=== PATIENT | female | born 1980 | race African-American/Black ===

== ENCOUNTER 2017-02-25 13:55 | Emergency (ER) | payer OTHER ==
[~2017-02-25] VITALS: Ht 160 cm; Wt 73.5 kg
[~2017-02-25 13:55] MED LIST: AMLODIPINE; AMLODIPINE BESY10 MG PO; ATIVAN0.5 MG PO; BACTRIM DS TAB1 EACH PO; CARAFATE 1 GM TA1 GM PO; CARAFATE1 GM/10 ML PO; COLACE 100 MG100 MG PO; COMPAZINE10 MG PO; CRESTOR; IBUPROFEN 600600 M1 PO; LEVAQUIN 500 M500 M1 PO; LEVSIN SL; LISINOPRIL-HCT1 EAC2; MOBIC15 MG PO; MUPIROCIN1 GM TP; NOHOMEMEDICATIONS; NORCO 5-325 TA1 EACH PO; NORCO 7.5-3251 EACH PO; PEPCID40 MG PO; PHENADOZ12.5 MG RC; PHENERGAN 25 MG25 M1 PO; POTASSIUM20 PO; PRILOSEC 20 MG20 MG PO; PRINZIDE 20-121 EACH PO; PROTONIX40 M2 PO; REGLAN 5 MG TAB5 M1 PO; TRAMADOL 50 MG50 MG PO; ZANTAC 150MG T150 M1 PO; ZOFRAN ODT4 MG PO
[2017-02-25 14:23] LABS: URINE BILIRUBIN NEGATIVE (Negative); URINE BLOOD TRACE (Negative); URINE COLOR YELLOW; URINE GLUCOSE-RANDOM* NEGATIVE (Negative); URINE KETONES NEGATIVE (Negative); URINE NITRITE NEGATIVE (Negative); URINE PROTEIN (DIPSTICK) 1+ (Negative); URINE SPECIFIC GRAVITY 1.025 (1.003-1.035); URINE UROBILINOGEN 0.2 E.U./dl (0.2-1.0)
[2017-02-25 14:38] LABS: ABSOLUTE NEUTROPHILS 5.2 thou/uL (1.4-8.2); BASOPHILS 1.2 % (0.0-2.0); EOSINOPHILS 2.6 % (0.0-3.0); HEMATOCRIT 37.1 % (37.0-47.0); HEMOGLOBIN 12.1 gm/dL (12.0-15.0); LYMPHOCYTES 30.1 % (24.0-44.0); MCH 26.3 pg (26.0-34.0); MCHC 32.6 g/dL (28.0-37.0); MCV 80.6 fL (80.0-100.0); MONOCYTES 5.3 % (1.0-8.0); PLATELET COUNT 336 thou/uL (150-400); POLYS 60.8 % (36.0-66.0); WBC 8.5 thou/uL (4.0-11.0)
[2017-02-25 14:39] LABS: MANUAL DIFF NO
[2017-02-25 14:41] LABS: CASTS None Seen /LPF (None Seen); SQUAMOUS 4-10 Moderate /LPF (0-3)
[2017-02-25 14:42] LABS: URINE RBC 0-2 Rare /HPF (0-2); URINE WBC 6-15 Few /HPF (0-5)
[2017-02-25 14:43] LABS: BACTERIA 1-9 Few /HPF (None Seen); CRYSTALS None Seen /LPF (None Seen); WBC CLUMPS Occasional (None Seen)
[2017-02-25 14:48] LABS: ANION GAP 7 mmol/L (7-16); BUN 11 mg/dL (7-18); CALCIUM 9.2 mg/dL (8.5-10.1); CHLORIDE 103 mmol/L (98-107); CO2 28 mmol/L (21-32); CREATININE 0.8 mg/dL (0.6-1.0); GLUCOSE 104 mg/dL (74-106); POTASSIUM 3.4 mmol/L (3.5-5.1); SODIUM 138 mmol/L (136-145)
[2017-02-25 14:54] LABS: ALBUMIN 3.6 g/dL (3.4-5.0); ALKALINE PHOSPHATASE 124 U/L (46-116); DIRECT BILIRUBIN < 0.1 mg/dL (<0.1-0.3); SGOT 26 U/L (15-37); SGPT 35 U/L (30-65); TOTAL BILIRUBIN 0.4 mg/dL (<0.1-1.0); TOTAL PROTEIN 7.8 g/dL (6.4-8.2); TROPONIN-I < 0.04 ng/mL (<0.04-0.07)
[2017-02-25] MEDS ORDERED: CLONIDINE0.1 PO (15:07)
[2017-02-25] MEDS ORDERED: MACROBID 100 M100 M1 PO (15:07)
[2017-02-25] MEDS ORDERED: ZOFRAN ODT4 MG PO (15:08)
== END 2017-02-25 15:46 | disposition home or self-care (01) ==
LOC: ER 13:55
PROVIDERS: Emergency Medicine
DX: N39.0 Urinary tract infection, site not specified (principal); I10 Essential (primary) hypertension; R11.2 Nausea with vomiting, unspecified; F43.9 Reaction to severe stress, unspecified; Z90.49 Acquired absence of other specified parts of digestive tract; Z88.0 Allergy status to penicillin

== ENCOUNTER → 2017-04-10 | Outpatient (CLI) | payer BC ==
[~2017-04-10] MED LIST changes: +CLONIDINE0.1 PO; +MACROBID 100 M100 M1 PO
--- NOTE | ~2017-04-10 | EXE ---
[facility] Rob [employer] [place] [place] [address] STRESS ECHOCARDIOGRAM Name: NELLY CHINCHILLA Doe Room #: REG CL [facility]#: [id number] Admission: 04/10/17 Attend Phys: Physician not on s Discharge: Date of : 76 Date of Service: 04/10/17 1442 Report #: [id number] THIS REPORT FOR: //name// APPROVED REPORT Exam: Stress Echocardiogram Indication: Hypertension, Chest pain Patient Location: Out-Patient Stress Nurse: Katya Ley RN Room #: Echo lab Status: routine Ht: 5 ft 3 in HR: 64 bpm BP: 152/106 mmHg Medical History Medical History: HTN Cardiac Risk Factors: HTN, FHX of CAD Exercise History: Physically active Procedure The patient underwent an Exercise Stress Test using the Memo Protocol. Blood pressure, heart rate, and EKG were monitored. An Echocardiogram was performed by parts technician in four stages in quad fashion. At peak stress, four selected images were obtained and placed side by side with resting images for comparison. Stress Test Details Stress Test: Exercise stress testing was performed using a Memo protocol. HR Resting HR: 64 bpm Max Heart Rate (APMHR): 182 bpm Max HR Achieved: 173 bpm Target HR (85% APMHR): 154 bpm % of APMHR: 95 Recovery HR: 86 bpm HR response to stress: Normal HR response to stress BP Resting BP: 152/106 mmHg Max BP: 208/124 mmHg Recovery BP: 150/102 mmHg ECG Clinical [facility] [address] [place] [address] STRESS ECHOCARDIOGRAM Name: NELLY CHINCHILLA Room #: REG [facility]#: [id number] Admission: 04/10/17 Attend Phys: Physician not on s Discharge: Date of : 76 Date of Service: 04/10/17 1442 Report #: [id number] Reason for Termination: Maximal effort Exercise duration: 9 min 19 sec Highest Stage Achieved: Stage 4: 4.2 mph at 16% grade. Exercise capacity: 11.1 METs Overall Exercise Capacity for Age: Normal Pre-Stress Echo The resting Echocardiogram showed normal left ventricular contractility with an estimated Ejection Fraction of about 55%. Post-Stress Echo The stress Echocardiogram showed normal left ventricular contractility with an estimated Ejection Fraction of about 65%. Clinical Normal augmentation of myocardial wall segments using a 17 segment model. Conclusion Clinical Response: Non-ischemic Exercise Capacity: Average Stress ECG Response: Non-ischemic Stress Echo Images: Non-ischemic No prior study available for comparison. Other Information Study Quality: Good <ELECTRONICALLY SIGNED> By: Jayden Pimentel MD, [facility] 04/10/171441 41 1442 Jayden Pimentel MD, FACC /INF
== END ==
LOC: CV 03-27 08:23
DX: I25.9 Chronic ischemic heart disease, unspecified (principal)

== ENCOUNTER 2017-11-03 14:32 | Inpatient (IN) | payer BC ==
[~2017-11-03] VITALS: Ht 160 cm; Wt 71.6 kg
--- NOTE | ~2017-11-03 | EKG ---
[address] [address] ELECTROCARDIOGRAM REPORT Name: NELLY CHINCHILLA Room #: 427-P [facility]#: [id number] Admission: 11/03/17 Attend Phys: Abram Corcoran MD Discharge: Date of : 76 Report #: [id number] THIS REPORT FOR: //name// [facility] ED Test Date: 2017-11-03 Test Time: 17:16:21 Pat Name: NELLY CHINCHILLA Department: Room: [facility] Gender: F Rug Frame Mounter: MAURISIO : 1980 Requested By: Edi Leon Order Number: [id number] MD: Rudy Cohen Measurements Intervals [place] Rate: 72 P: 64 NE: 178 QRS: 14 QRSD: 101 T: 35 QT: 423 QTc: 463 Interpretive Statements Sinus arrhythmia Abnormal R-wave progression, early transition Compared to ECG 06/14/2011 15:05:24 No significant change was found Electronically Signed On 11-04-2017 8:04:26 CDT by Rudy Cohen [email or web address] <ELECTRONICALLY SIGNED> By: Rudy Cohen MD, [facility] 11/04/17 0804 1716 15 Rudy Cohen MD, [facility] /EPI
[2017-11-03 14:38] VITALS: BP 203/121
[2017-11-03 15:13] LABS: ABSOLUTE NEUTROPHILS 6.5 thou/uL (1.4-8.2); BASOPHILS 1.1 % (0.0-2.0); EOSINOPHILS 2.4 % (0.0-3.0); HEMATOCRIT 38.9 % (37.0-47.0); HEMOGLOBIN 12.6 gm/dL (12.0-15.0); LYMPHOCYTES 23.4 % (24.0-44.0); MCH 26.4 pg (26.0-34.0); MCHC 32.3 g/dL (28.0-37.0); MCV 81.6 fL (80.0-100.0); MONOCYTES 4.1 % (1.0-8.0); PLATELET COUNT 322 thou/uL (150-400); RBC 4.77 mil/uL (4.20-5.00); RDW 16.6 % (10.5-14.5); WBC 9.4 thou/uL (4.0-11.0)
[2017-11-03 15:14] LABS: URINE BILIRUBIN NEGATIVE (Negative); URINE BLOOD 1+ (Negative); URINE CLARITY CLEAR; URINE COLOR YELLOW; URINE GLUCOSE-RANDOM* NEGATIVE (Negative); URINE KETONES NEGATIVE (Negative); URINE LEUKOCYTES NEGATIVE (Negative); URINE NITRITE NEGATIVE (Negative); URINE PROTEIN (DIPSTICK) TRACE (Negative); URINE SPECIFIC GRAVITY 1.015 (1.005-1.035); URINE UROBILINOGEN 0.2 E.U./dl (0.2-1.0)
[2017-11-03 15:21] LABS: ANION GAP 11 mmol/L (7-16); BUN 12 mg/dL (7-18); CALCIUM 9.6 mg/dL (8.5-10.1); CHLORIDE 102 mmol/L (98-107); CO2 28 mmol/L (21-32); CREATININE 0.6 mg/dL (0.6-1.0); GLUCOSE 100 mg/dL (74-106); POTASSIUM 3.4 mmol/L (3.5-5.1); SODIUM 141 mmol/L (136-145)
[2017-11-03 15:26] LABS: AMORPHOUS PHOSPHATES Moderate /LPF (None Seen); BACTERIA 1-9 Few /HPF (None Seen); CASTS None Seen /LPF (None Seen); SQUAMOUS 0-3 Few /LPF (0-3); URINE RBC 0-2 Rare /HPF (0-2); URINE WBC None Seen /HPF (0-5)
[2017-11-03 15:27] LABS: ALBUMIN 4.2 g/dL (3.4-5.0); DIRECT BILIRUBIN < 0.1 mg/dL (<0.1-0.3); LIPASE 158 U/L (73-393); SGOT 20 U/L (15-37); SGPT 28 U/L (30-65); TOTAL BILIRUBIN 0.5 mg/dL (<0.1-1.0); TOTAL PROTEIN 8.3 g/dL (6.4-8.2)
[2017-11-03 17:42] LABS: AMP/METHAMP Negative (Negative); BARBITURATES Negative (Negative); BENZODIAZEPINES Negative (Negative); COCAINE Negative (Negative); METHADONE Negative (Negative); OPIATES Negative (Negative); PCP Negative (Negative)
[2017-11-03 19:41] VITALS: BP 157/97
[2017-11-03 20:49] VITALS: BP 172/92
[2017-11-04 00:21] VITALS: BP 189/98
[2017-11-04 04:00] VITALS: BP 216/129
[2017-11-04 04:15] VITALS: BP 205/121
[2017-11-04 06:37] LABS: CALCIUM 10.5 mg/dL (8.5-10.1); CREATININE 0.7 mg/dL (0.6-1.0)
[2017-11-04 07:25] VITALS: BP 181/111
[2017-11-04 17:30] VITALS: BP 204/118
[2017-11-04 20:00] VITALS: BP 201/107
[2017-11-05 04:00] VITALS: BP 170/21
[2017-11-05 05:37] LABS: ABSOLUTE NEUTROPHILS 10.5 thou/uL (1.4-8.2); BASOPHILS 0.6 % (0.0-2.0); EOSINOPHILS 0.2 % (0.0-3.0); HEMATOCRIT 42.1 % (37.0-47.0); HEMOGLOBIN 13.5 gm/dL (12.0-15.0); LYMPHOCYTES 17.1 % (24.0-44.0); MCH 26.1 pg (26.0-34.0); MCHC 32.2 g/dL (28.0-37.0); MONOCYTES 4.9 % (1.0-8.0); PLATELET COUNT 373 thou/uL (150-400); POLYS 77.2 % (36.0-66.0); RBC 5.19 mil/uL (4.20-5.00); WBC 13.6 thou/uL (4.0-11.0)
[2017-11-05 05:51] LABS: CALCIUM 9.8 mg/dL (8.5-10.1); CREATININE 0.7 mg/dL (0.6-1.0)
[2017-11-05 07:35] VITALS: BP 181/121
[2017-11-05 14:25] VITALS: BP 161/102
[2017-11-05 20:00] VITALS: BP 115/82
[2017-11-06 04:03] VITALS: BP 119/80
[2017-11-06 07:30] VITALS: BP 93/56
[2017-11-06 11:23] LABS: CALCIUM 9.2 mg/dL (8.5-10.1); CREATININE 0.8 mg/dL (0.6-1.0); POTASSIUM 4.4 mmol/L (3.5-5.1)
[2017-11-06 15:23] VITALS: BP 170/100
[2017-11-06 19:15] VITALS: BP 143/103
[2017-11-07 00:01] VITALS: BP 112/73
[2017-11-07 04:38] VITALS: BP 124/88
[2017-11-07 07:48] VITALS: BP 107/70
[2017-11-07 09:35] VITALS: BP 107/70
== END 2017-11-07 11:20 | disposition home or self-care (01) | DRG 305 ==
LOC: ER 14:32 → EROBS 18:35 → 4E 18:40
PROVIDERS: Hospitalist; Nurse Practitioner
DX: I16.0 Hypertensive urgency (principal); E87.6 Hypokalemia; F12.10 Cannabis abuse, uncomplicated; I10 Essential (primary) hypertension; Z98.891 History of uterine scar from previous surgery; Z90.49 Acquired absence of other specified parts of digestive tract; Z71.51 Drug abuse counseling and surveillance of drug abuser; Z79.899 Other long term (current) drug therapy; Z88.0 Allergy status to penicillin; Z91.14 Patient's other noncompliance with medication regimen; Z28.21 Immunization not carried out because of patient refusal
CPT/HCPCS: 10084

== ENCOUNTER 2017-12-03 09:17 | Emergency (ER) | payer BC ==
[~2017-12-03] VITALS: Ht 160 cm; Wt 68.0 kg
[2017-12-03 09:47] LABS: ABSOLUTE NEUTROPHILS 3.5 thou/uL (1.4-8.2); BASOPHILS 1.3 % (0.0-2.0); HEMATOCRIT 40.5 % (37.0-47.0); LYMPHOCYTES 45.7 % (24.0-44.0); MCH 25.8 pg (26.0-34.0); MCV 80.6 fL (80.0-100.0); MONOCYTES 6.5 % (1.0-8.0); PLATELET COUNT 366 thou/uL (150-400); POLYS 43.5 % (36.0-66.0); RBC 5.02 mil/uL (4.20-5.00); RDW 15.8 % (10.5-14.5); WBC 7.9 thou/uL (4.0-11.0)
[2017-12-03] MEDS ORDERED: CHLORTHALIDONE25 MG PO (09:51)
[2017-12-03] MEDS ORDERED: ZANTAC 150MG T150 MG PO (09:51)
[2017-12-03 09:57] LABS: ANION GAP 11 mmol/L (7-16); BUN 14 mg/dL (7-18); CALCIUM 10.4 mg/dL (8.5-10.1); CHLORIDE 98 mmol/L (98-107); CO2 29 mmol/L (21-32); GLUCOSE 118 mg/dL (74-106); POTASSIUM 3.1 mmol/L (3.5-5.1); SODIUM 138 mmol/L (136-145)
[2017-12-03 10:02] LABS: DIRECT BILIRUBIN < 0.1 mg/dL (<0.1-0.3); LIPASE 154 U/L (73-393); SGOT 22 U/L (15-37); SGPT 31 U/L (30-65); TOTAL BILIRUBIN 0.5 mg/dL (<0.1-1.0); TOTAL PROTEIN 8.9 g/dL (6.4-8.2)
[2017-12-03] MEDS ORDERED: CARAFATE 1 GM TA1 G1 PO (12:18)
[2017-12-03] MEDS ORDERED: PHENERGAN 25 MG25 M1 PO (12:18)
[2017-12-03] MEDS ORDERED: POTASSIUM20 PO (12:21)
== END 2017-12-03 14:50 | disposition home or self-care (01) ==
LOC: ER 09:17
PROVIDERS: Nurse Practitioner
DX: R11.2 Nausea with vomiting, unspecified (principal); R50.9 Fever, unspecified; I10 Essential (primary) hypertension; Z90.49 Acquired absence of other specified parts of digestive tract; Z88.0 Allergy status to penicillin

== ENCOUNTER 2017-12-07 10:49 | Inpatient (IN) | payer BC ==
[~2017-12-07] VITALS: Ht 160 cm; Wt 66.2 kg
[~2017-12-07 10:49] MED LIST changes: +CARAFATE 1 GM TA1 G1 PO; +CHLORTHALIDONE25 MG PO; +ZANTAC 150MG T150 MG PO
[2017-12-07 10:54] VITALS: BP 142/104
[2017-12-07 11:27] LABS: ABSOLUTE NEUTROPHILS 7.3 thou/uL (1.4-8.2); BASOPHILS 0.8 % (0.0-2.0); EOSINOPHILS 0.6 % (0.0-3.0); HEMATOCRIT 46.4 % (37.0-47.0); HEMOGLOBIN 15.2 gm/dL (12.0-15.0); LYMPHOCYTES 35.5 % (24.0-44.0); MCH 25.8 pg (26.0-34.0); MCHC 32.7 g/dL (28.0-37.0); MCV 78.9 fL (80.0-100.0); MONOCYTES 6.4 % (1.0-8.0); PLATELET COUNT 377 thou/uL (150-400); POLYS 56.7 % (36.0-66.0); RBC 5.89 mil/uL (4.20-5.00); RDW 15.5 % (10.5-14.5); WBC 12.9 thou/uL (4.0-11.0)
[2017-12-07 11:39] LABS: CALCIUM 9.9 mg/dL (8.5-10.1); CREATININE 1.3 mg/dL (0.6-1.0)
[2017-12-07 11:43] LABS: POTASSIUM 2.7 mmol/L (3.5-5.1)
[2017-12-07 11:46] LABS: TOTAL BILIRUBIN 1.3 mg/dL (<0.1-1.0); TOTAL PROTEIN 8.5 g/dL (6.4-8.2)
[2017-12-07 14:45] LABS: URINE BILIRUBIN NEGATIVE (Negative); URINE BLOOD TRACE (Negative); URINE CLARITY CLEAR; URINE COLOR YELLOW; URINE GLUCOSE-RANDOM* NEGATIVE (Negative); URINE KETONES NEGATIVE (Negative); URINE LEUKOCYTES-REFLEX NEGATIVE (Negative); URINE NITRITE-REFLEX NEGATIVE (Negative); URINE PROTEIN (DIPSTICK) 1+ (Negative); URINE UROBILINOGEN 0.2 E.U./dl (0.2-1.0)
[2017-12-07 14:56] LABS: AMP/METHAMP Negative (Negative); BACTERIA-REFLEX None Seen /HPF (None Seen); BARBITURATES Negative (Negative); BENZODIAZEPINES Negative (Negative); COARSE GRANULAR CASTS 0-3 Few /LPF (None Seen); COCAINE Negative (Negative); CRYSTALS None Seen /LPF (None Seen); HYALINE CASTS 4-10 Moderate /LPF (None Seen); METHADONE Negative (Negative); MUCUS >6 Heavy strn/LPF (None Seen); OPIATES POSITIVE (Negative); PCP Negative (Negative); SQUAMOUS 4-10 Moderate /LPF (0-3); URINE RBC 0-2 Rare /HPF (0-2); URINE WBC-REFLEX 6-15 Few /HPF (0-5)
[2017-12-07] MEDS ORDERED: ONDANSETRON HCL4 M2 PO (14:58)
[2017-12-07 15:09] VITALS: BP 97/65
[2017-12-07 16:00] VITALS: BP 97/65
[2017-12-07 19:27] VITALS: BP 108/74
[2017-12-07 23:39] VITALS: BP 102/54
[2017-12-08 04:22] VITALS: BP 97/63
[2017-12-08 06:18] LABS: HEMATOCRIT 37.1 % (37.0-47.0); HEMOGLOBIN 11.8 gm/dL (12.0-15.0); MCHC 31.8 g/dL (28.0-37.0); MCV 81.7 fL (80.0-100.0); PLATELET COUNT 295 thou/uL (150-400); RBC 4.54 mil/uL (4.20-5.00); WBC 11.6 thou/uL (4.0-11.0)
[2017-12-08 06:44] LABS: CALCIUM 8.7 mg/dL (8.5-10.1); CREATININE 0.9 mg/dL (0.6-1.0); MAGNESIUM 2.2 mg/dL (1.8-2.4); POTASSIUM 3.2 mmol/L (3.5-5.1)
[2017-12-08 07:15] VITALS: BP 113/81
[2017-12-08 08:58] LABS: ABSOLUTE NEUTROPHILS 2.4 thou/uL (1.4-8.2); ATYPICAL LYMPHS 7 %
[2017-12-08 10:12] LABS: PLATELET ESTIMATE NORMAL
[2017-12-08 19:26] VITALS: BP 113/66
[2017-12-09 05:14] VITALS: BP 98/59
[2017-12-09 06:03] LABS: CALCIUM 8.4 mg/dL (8.5-10.1); CREATININE 0.8 mg/dL (0.6-1.0); POTASSIUM 4.1 mmol/L (3.5-5.1)
[2017-12-09 07:51] VITALS: BP 100/74
[2017-12-09] MEDS ORDERED: CIPRO250 M1 PO (10:32)
[2017-12-09] MEDS ORDERED: HYDROCODONE-AP1 EAC6 PO (10:33)
[2017-12-09] MEDS ORDERED: FELODIPINE 5 MG5 M1 PO (10:33)
[2017-12-09 12:08] VITALS: BP 100/74
== END 2017-12-09 12:53 | disposition home or self-care (01) | DRG 694 ==
LOC: ER 10:49 → EROBS 13:19 → 4W 13:19 → ENTRNSPT 12-09 12:21 → EDTRNSPTSTS 12-09 12:23 → 4W 12-09 12:53
PROVIDERS: Hospitalist; Nurse Practitioner; Physician Assistant
DX: N20.0 Calculus of kidney (principal); N17.9 Acute kidney failure, unspecified; K52.9 Noninfective gastroenteritis and colitis, unspecified; E87.6 Hypokalemia; I10 Essential (primary) hypertension; E86.0 Dehydration; F12.10 Cannabis abuse, uncomplicated; Z88.0 Allergy status to penicillin; Z90.49 Acquired absence of other specified parts of digestive tract
CPT/HCPCS: 10045

== ENCOUNTER 2018-04-01 16:29 | Emergency (ER) | payer BC ==
[~2018-04-01] VITALS: Ht 160 cm; Wt 70.3 kg
--- NOTE | ~2018-04-01 | EKG ---
[address] [address] ELECTROCARDIOGRAM REPORT Name: NELLY CHINCHILLA Room #: [facility]#: [id number] Admission: 04/01/18 Attend Phys: Discharge: 04/01/18 Date of : 76 Report #: [id number] THIS REPORT FOR: //name// [facility] ED Test Date: 2018-04-01 Test Time: 18:02:18 Pat Name: NELLY CHINCHILLA Department: Room: Gender: F Rn Integrated: VIANEY : 1980 Requested By: Minnie Barnett Order Number: [id number] MD: Rudy Cohen Measurements Intervals [place] Rate: 59 P: 0 MO: 222 QRS: 7 QRSD: 105 T: 23 QT: 435 QTc: 431 Interpretive Statements Sinus rhythm Prolonged [place] interval Compared to ECG 11/03/2017 17:16:21 First degree AV block now present Electronically Signed On 04-02-2018 8:27:54 CDT by Rudy Cohen [email or web address] <ELECTRONICALLY SIGNED> By: Rudy Cohen MD, [facility] 04/02/18 0827 180 01 Rudy Cohen MD, FACC /EPI
[~2018-04-01 16:29] MED LIST changes: +CIPRO250 M1 PO; +FELODIPINE 5 MG5 M1 PO; +HYDROCODONE-AP1 EAC6 PO; +ONDANSETRON HCL4 M2 PO
[2018-04-01 17:33] LABS: URINE BILIRUBIN NEGATIVE (Negative); URINE BLOOD NEGATIVE (Negative); URINE CLARITY CLEAR; URINE COLOR YELLOW; URINE GLUCOSE-RANDOM* NEGATIVE (Negative); URINE KETONES TRACE (Negative); URINE LEUKOCYTES-REFLEX NEGATIVE (Negative); URINE NITRITE-REFLEX NEGATIVE (Negative); URINE PROTEIN (DIPSTICK) 1+ (Negative); URINE SPECIFIC GRAVITY >= 1.030 (1.005-1.035); URINE UROBILINOGEN 0.2 E.U./dl (0.2-1.0)
[2018-04-01 17:48] LABS: BACTERIA-REFLEX None Seen /HPF (None Seen); CASTS None Seen /LPF (None Seen); CRYSTALS None Seen /LPF (None Seen); MUCUS >6 Heavy strn/LPF (None Seen); SQUAMOUS 4-10 Moderate /LPF (0-3); URINE RBC 0-2 Rare /HPF (0-2); URINE WBC-REFLEX 0-5 Rare /HPF (0-5)
[2018-04-01 18:01] LABS: ABSOLUTE NEUTROPHILS 3.7 thou/uL (1.4-8.2); BASOPHILS 1.2 % (0.0-2.0); EOSINOPHILS 2.7 % (0.0-3.0); HEMATOCRIT 35.9 % (37.0-47.0); HEMOGLOBIN 11.8 gm/dL (12.0-15.0); LYMPHOCYTES 40.2 % (24.0-44.0); MCH 26.8 pg (26.0-34.0); MCHC 32.9 g/dL (28.0-37.0); MCV 81.4 fL (80.0-100.0); MONOCYTES 4.9 % (1.0-8.0); PLATELET COUNT 301 thou/uL (150-400); RBC 4.41 mil/uL (4.20-5.00); WBC 7.3 thou/uL (4.0-11.0)
[2018-04-01 18:08] LABS: ANION GAP 9 mmol/L (7-16); BUN 12 mg/dL (7-18); CHLORIDE 102 mmol/L (98-107); CO2 27 mmol/L (21-32); CREATININE 0.7 mg/dL (0.6-1.0); GLUCOSE 83 mg/dL (74-106); POTASSIUM 3.2 mmol/L (3.5-5.1); SODIUM 138 mmol/L (136-145)
[2018-04-01 18:17] LABS: ALBUMIN 3.8 g/dL (3.4-5.0); LIPASE 88 U/L (73-393); SGOT 19 U/L (15-37); SGPT 27 U/L (30-65); TOTAL BILIRUBIN 0.6 mg/dL (<0.1-1.0); TOTAL PROTEIN 7.5 g/dL (6.4-8.2); TROPONIN-I <0.06 ng/mL (<0.06)
[2018-04-01 18:36] LABS: AMP/METHAMP Negative (Negative); BARBITURATES Negative (Negative); BENZODIAZEPINES Negative (Negative); COCAINE Negative (Negative); METHADONE Negative (Negative); OPIATES Negative (Negative); PCP Negative (Negative)
[2018-04-01] MEDS ORDERED: CARAFATE 1 GM TA1 G1 PO (19:28)
[2018-04-01] MEDS ORDERED: LISINOPRIL5 MG PO (19:28)
[2018-04-01] MEDS ORDERED: ONDANSETRON HCL4 M2 PO (19:29)
[2018-04-01] MEDS ORDERED: PHENERGAN 25 MG25 M1 PO (19:53)
== END 2018-04-01 20:26 | disposition home or self-care (01) ==
LOC: ER 16:29
PROVIDERS: Nurse Practitioner Family
DX: E87.6 Hypokalemia (principal); F12.99 Cannabis use, unspecified with unspecified cannabis-induced disorder; R11.2 Nausea with vomiting, unspecified; R10.32 Left lower quadrant pain; R10.13 Epigastric pain; I10 Essential (primary) hypertension; Z88.0 Allergy status to penicillin; Z98.890 Other specified postprocedural states; Z90.49 Acquired absence of other specified parts of digestive tract

== ENCOUNTER 2018-05-15 12:55 | Emergency (ER) | payer BC ==
[~2018-05-15] VITALS: Ht 160 cm; Wt 67.6 kg
[~2018-05-15 12:55] MED LIST changes: +LISINOPRIL5 MG PO
[2018-05-15 13:38] LABS: BASOPHILS 0.5 % (0.0-2.0); EOSINOPHILS 0.5 % (0.0-3.0); HEMATOCRIT 44.9 % (37.0-47.0); LYMPHOCYTES 15.7 % (24.0-44.0); MCH 26.5 pg (26.0-34.0); MCHC 33.5 g/dL (28.0-37.0); MCV 79.2 fL (80.0-100.0); PLATELET COUNT 399 thou/uL (150-400); POLYS 77.3 % (36.0-66.0); RBC 5.67 mil/uL (4.20-5.00); WBC 16.9 thou/uL (4.0-11.0)
[2018-05-15 13:41] LABS: URINE BLOOD 3+ (Negative); URINE GLUCOSE-RANDOM* NEGATIVE (Negative); URINE KETONES 1+ (Negative); URINE LEUKOCYTES-REFLEX NEGATIVE (Negative); URINE PROTEIN (DIPSTICK) 3+ (Negative); URINE SPECIFIC GRAVITY 1.025 (1.005-1.035); URINE UROBILINOGEN 0.2 E.U./dl (0.2-1.0)
[2018-05-15 13:44] LABS: CALCIUM 10.9 mg/dL (8.5-10.1); POTASSIUM 3.2 mmol/L (3.5-5.1)
[2018-05-15 13:45] LABS: URINE NITRITE-REFLEX POSITIVE (Negative)
[2018-05-15] MEDS ORDERED: HYDROCHLOROTHIA25 M2 PO (13:45)
[2018-05-15 13:46] LABS: ICTOTEST (BILI CONFIRMATORY) Negative (Negative); URINE BILIRUBIN NEGATIVE (Negative); URINE CLARITY CLOUDY; URINE COLOR REDDISH
[2018-05-15 13:49] LABS: BACTERIA-REFLEX 1-9 Few /HPF (None Seen); SQUAMOUS 4-10 Moderate /LPF (0-3); URINE RBC >20 Many /HPF (0-2); URINE WBC-REFLEX 0-5 Rare /HPF (0-5)
[2018-05-15 13:51] LABS: CASTS None Seen /LPF (None Seen); CRYSTALS None Seen /LPF (None Seen)
[2018-05-15 13:51] LABS: ALBUMIN 4.3 g/dL (3.4-5.0); TOTAL BILIRUBIN 1.2 mg/dL (<0.1-1.0); TOTAL PROTEIN 9.4 g/dL (6.4-8.2)
[2018-05-15] MEDS ORDERED: NORCO 5-325 TA1 EACH PO (15:48)
[2018-05-15] MEDS ORDERED: REGLAN 10 MG TA10 MG PO (15:48)
== END 2018-05-15 16:27 | disposition home or self-care (01) ==
LOC: ER 12:55
PROVIDERS: Physician Assistant
DX: N83.202 Unspecified ovarian cyst, left side (principal); I10 Essential (primary) hypertension; E87.6 Hypokalemia; D21.9 Benign neoplasm of connective and other soft tissue, unspecified; Z90.49 Acquired absence of other specified parts of digestive tract; Z98.890 Other specified postprocedural states; Z88.0 Allergy status to penicillin

== ENCOUNTER 2018-05-18 14:05 | Emergency (ER) | payer BC ==
[~2018-05-18] VITALS: Ht 160 cm; Wt 63.5 kg
--- NOTE | ~2018-05-18 | EKG ---
[place] [address] [address] [facility] [place] [address] ELECTROCARDIOGRAM REPORT Name: AMORNELLY Room #: [facility]#: [id number] Admission: 05/18/18 Attend Phys: Discharge: Date of : 76 Report #: [id number] THIS REPORT FOR: //name// [facility] ED Test Date: 2018-05-18 Test Time: 14:56:20 Pat Name: NELLY CHINCHILLA Department: Room: Gender: F Material Reprocessing Associate: rakesh : 1980 Requested By: Shawnee Barber Order Number: [id number] MD: Measurements Intervals [place] Rate: 81 P: 39 VT: 181 QRS: 5 QRSD: 106 T: 33 QT: 432 QTc: 502 Interpretive Statements Sinus rhythm Probable left ventricular hypertrophy Borderline prolonged QT interval Compared to ECG 04/01/2018 18:02:18 First degree AV block no longer present [email or web address] By: 1456 1456 Epiphany EpiphMD dhara /RED
[~2018-05-18 14:05] MED LIST changes: +HYDROCHLOROTHIA25 M2 PO; +REGLAN 10 MG TA10 MG PO
[2018-05-18 15:22] LABS: ABSOLUTE NEUTROPHILS 6.6 thou/uL (1.4-8.2); EOSINOPHILS 1.4 % (0.0-3.0); HEMOGLOBIN 13.1 gm/dL (12.0-15.0); LYMPHOCYTES 31.6 % (24.0-44.0); MCH 26.8 pg (26.0-34.0); MCHC 33.5 g/dL (28.0-37.0); MCV 80.1 fL (80.0-100.0); MONOCYTES 4.5 % (1.0-8.0); PLATELET COUNT 325 thou/uL (150-400); POLYS 61.5 % (36.0-66.0); RBC 4.87 mil/uL (4.20-5.00); WBC 10.7 thou/uL (4.0-11.0)
[2018-05-18 15:27] LABS: CALCIUM 9.5 mg/dL (8.5-10.1); CREATININE 0.9 mg/dL (0.6-1.0)
[2018-05-18 15:30] LABS: POTASSIUM 2.4 mmol/L (3.5-5.1)
[2018-05-18 15:33] LABS: ALBUMIN 3.7 g/dL (3.4-5.0); TOTAL BILIRUBIN 0.9 mg/dL (<0.1-1.0); TOTAL PROTEIN 7.6 g/dL (6.4-8.2)
[2018-05-18 16:19] LABS: URINE BILIRUBIN NEGATIVE (Negative); URINE BLOOD 2+ (Negative); URINE CLARITY CLEAR; URINE COLOR YELLOW; URINE GLUCOSE-RANDOM* NEGATIVE (Negative); URINE KETONES NEGATIVE (Negative); URINE LEUKOCYTES-REFLEX NEGATIVE (Negative); URINE NITRITE-REFLEX NEGATIVE (Negative); URINE PROTEIN (DIPSTICK) NEGATIVE (Negative); URINE SPECIFIC GRAVITY 1.015 (1.005-1.035); URINE UROBILINOGEN 0.2 E.U./dl (0.2-1.0)
[2018-05-18 16:47] LABS: CASTS None Seen /LPF (None Seen); SQUAMOUS >10 Many /LPF (0-3); URINE WBC-REFLEX 0-5 Rare /HPF (0-5)
[2018-05-18 16:48] LABS: BACTERIA-REFLEX 1-9 Few /HPF (None Seen); CRYSTALS None Seen /LPF (None Seen); URINE RBC 3-10 Few /HPF (0-2)
[2018-05-18] MEDS ORDERED: REGLAN 10 MG TA10 MG PO (17:30)
[2018-05-18] MEDS ORDERED: NORCO 5-325 TA1 EACH PO (17:30)
[2018-05-18] MEDS ORDERED: POTASSIUM20 PO (17:30)
== END 2018-05-18 18:05 | disposition home or self-care (01) ==
LOC: ER 14:05
PROVIDERS: Physician Assistant
DX: E87.6 Hypokalemia (principal); R11.2 Nausea with vomiting, unspecified; R10.13 Epigastric pain; I10 Essential (primary) hypertension; Z88.0 Allergy status to penicillin; Z90.49 Acquired absence of other specified parts of digestive tract; Z98.890 Other specified postprocedural states

== ENCOUNTER 2018-07-15 17:29 | Emergency (ER) | payer BC ==
[~2018-07-15] VITALS: Ht 172.7 cm; Wt 74.8 kg
--- NOTE | ~2018-07-15 | EKG ---
[address] [address] ELECTROCARDIOGRAM REPORT Name: NELLY CHINCHILLA Room #: [facility]#: [id number] Admission: 07/15/18 Attend Phys: Discharge: 07/15/18 Date of : 76 Report #: [id number] THIS REPORT FOR: //name// [facility] ED Test Date: 2018-07-15 Test Time: 19:07:21 Pat Name: NELLY CHINCHILLA Department: Room: Gender: F Insurance Representative: as : 1980 Requested By: Minnie Barnett Order Number: [id number] MD: Rudy Cohen Measurements Intervals [place] Rate: 92 P: 62 WA: 166 QRS: 4 QRSD: 96 T: 53 QT: 376 QTc: 466 Interpretive Statements Sinus rhythm Nonspecific ST segment abnormality Compared to ECG 05/18/2018 14:56:20 No significant changes Electronically Signed On 07-16-2018 9:47:57 SPOUTER by Rudy Cohen [email or web address] <ELECTRONICALLY SIGNED> By: Rudy Cohen MD, [facility] 07/16/18 0947 1907 06 Rudy Cohen MD, FACC /EPI
[2018-07-15 17:46] LABS: URINE BILIRUBIN 1+ (Negative); URINE BLOOD 2+ (Negative); URINE CLARITY CLEAR; URINE COLOR YELLOW; URINE GLUCOSE-RANDOM* NEGATIVE (Negative); URINE KETONES NEGATIVE (Negative); URINE LEUKOCYTES-REFLEX NEGATIVE (Negative); URINE NITRITE-REFLEX NEGATIVE (Negative); URINE PROTEIN (DIPSTICK) 3+ (Negative); URINE SPECIFIC GRAVITY >= 1.030 (1.005-1.035); URINE UROBILINOGEN 0.2 E.U./dl (0.2-1.0)
[2018-07-15 18:01] LABS: COARSE GRANULAR CASTS 4-10 Moderate /LPF (None Seen); HYALINE CASTS 0-3 Few /LPF (None Seen); SQUAMOUS None Seen /LPF (0-3)
[2018-07-15 18:02] LABS: CRYSTALS None Seen /LPF (None Seen); MUCUS 0-3 Light strn/LPF (None Seen); URINE RBC None Seen /HPF (0-2); URINE WBC-REFLEX >25 Many /HPF (0-5)
[2018-07-15 18:09] LABS: ABSOLUTE NEUTROPHILS 6.9 thou/uL (1.4-8.2); BASOPHILS 0.5 % (0.0-2.0); HEMATOCRIT 48.3 % (37.0-47.0); HEMOGLOBIN 15.9 gm/dL (12.0-15.0); LYMPHOCYTES 13.8 % (24.0-44.0); MCH 26.9 pg (26.0-34.0); MCV 81.6 fL (80.0-100.0); MONOCYTES 3.1 % (1.0-8.0); PLATELET COUNT 382 thou/uL (150-400); POLYS 82.6 % (36.0-66.0); RBC 5.93 mil/uL (4.20-5.00); WBC 8.4 thou/uL (4.0-11.0)
[2018-07-15 18:17] LABS: CALCIUM 11.1 mg/dL (8.5-10.1); CREATININE 1.1 mg/dL (0.6-1.0); POTASSIUM 3.2 mmol/L (3.5-5.1)
[2018-07-15 18:23] LABS: ALBUMIN 4.9 g/dL (3.4-5.0); TOTAL BILIRUBIN 0.7 mg/dL (<0.1-1.0); TOTAL PROTEIN 10.1 g/dL (6.4-8.2)
[2018-07-15 19:00] LABS: AMP/METHAMP Negative (Negative); BARBITURATES Negative (Negative); BENZODIAZEPINES Negative (Negative); COCAINE Negative (Negative); METHADONE Negative (Negative); OPIATES Negative (Negative); PCP Negative (Negative)
[2018-07-15] MEDS ORDERED: PHENERGAN 25 MG25 M1 PO (20:46)
[2018-07-15] MEDS ORDERED: ONDANSETRON HCL4 M2 PO (20:46)
[2018-07-15] MEDS ORDERED: MACROBID 100 M100 M1 PO (21:04)
[2018-07-15 22:09] VITALS: BP 177/116
== END 2018-07-15 22:09 | disposition home or self-care (01) ==
LOC: ER 17:29
PROVIDERS: Nurse Practitioner Family
DX: N39.0 Urinary tract infection, site not specified (principal); E86.0 Dehydration; I16.0 Hypertensive urgency; I10 Essential (primary) hypertension; Z90.49 Acquired absence of other specified parts of digestive tract; Z98.890 Other specified postprocedural states; Z88.0 Allergy status to penicillin

== ENCOUNTER 2018-07-20 10:39 | Inpatient (IN) | payer BC ==
[~2018-07-20] VITALS: Ht 160 cm; Wt 69.4 kg
--- NOTE | ~2018-07-20 | PATH ---
[facility] [address] [place] [address] PATHOLOGY RPT PROCEDURE Name: NELLY CHINCHILLA Room #: 463-P DIS IN .R.#: [id number] Admission: 07/20/18 Date of : 76 Discharge: 07/22/18 Report #: [id number] Path Case #: [id number] Note [facility] Accession Number: [id number] TESTS RESULT FLAG UNITS REF RANGE LAB Clinician Provided Cytology Information No. of containers..01 Other (Miscellaneous) Source: 01 L PARATUBULAR CYST DIAGNOSIS: 02 LEFT PARATUBULAR CYST NEGATIVE FOR MALIGNANT CELLS. CELLULAR DEGENERATION IS PRESENT. REACTIVE CELLULAR CHANGES NOTED. CLUSTERS OF EPITHELIAL CELLS, SIMILAR TO THE CELLS NOTED IN THE SEROUS CYSTADENOMA NOTED IN [id number], PLEASE REFER TO A SEPARATE REPORT. Signed out by: 02 Kyung Jeffery MD, Pathologist NPI- [id number] Performed by: Meghan Rider, Decating Machine Operator ([facility]) Gross description: 01 35ML, YELLOW, CLEAR /LCS FLAG LEGEND: L-Low Normal,H-High Normal,LL-Alert Low,HH-Alert High <-Panic Low,>-Panic High,A-Abnormal,AA-Critical Abnormal Performed at: [address] [place] [address] Gerson Kilpatrick MD, [address] [address] Kyung Jeffery MD, Specimen Comment: A courtesy copy of this report has been sent to Specimen Comment: [phone], . Specimen Comment: Report sent to Performed at: [address], [place], [place] [id number] MD Gerson Kilpatrick MD Phone: [phone]
--- NOTE | ~2018-07-20 | O ---
[facility] [place] [address] OPERATIVE REPORT Name: NELLY CHINCHILLA Room #: 463-P ADM IN M.R.#: [id number] Admission: 07/20/18 Attend Phys: Asad Neely MD Discharge: Date of : 76 Report #: [id number] THIS REPORT FOR: //name// CC: LANG Lewis DATE OF SERVICE: 07/20/2018 PREOPERATIVE DIAGNOSES: Acute abdominal pain, persistent left ovarian cyst, acute nausea and vomiting, family history of ovarian cancer. POSTOPERATIVE DIAGNOSES: Acute abdominal pain, left adnexal paratubal cyst, pelvic adhesions from the omentum to the broad ligament and round ligament on the left side, nausea and vomiting. FAMILY HISTORY: Ovarian cancer. SURGEON: Tank Lewis M.D. ASSISTED BY: Jimbo Velásquez M.D. PROCEDURE: Laparoscopic bilateral salpingectomy and removal of left paratubal cyst, lysis of pelvic adhesions. ANESTHESIA: General. ESTIMATED BLOOD LOSS: 5 mL. DRAINS: Grant. SPECIMEN: 1. Peritoneal washings. 2. Left fallopian tube with left paratubal cyst. 3. Right fallopian tube. COMPLICATIONS: None. FINDINGS: 1. Benign appearing left paratubal cyst 6 cm in diameter pulling on the left ovary. There was no evidence of torsion. The cyst appeared simple with clear fluid. 2. Both ovaries and the right tube had inflammatory cysts on their surfaces. 3. No evidence of endometriosis nor tumor nodules in the pelvis, bowel or diaphragm. 4. Wide portion of omentum densely adherent to the left round ligament and [facility] [address] [place] [address] OPERATIVE REPORT Name: NELLY CHINCHILLA Room #: 463-P ADM IN M.R.#: [id number] Admission: 07/20/18 Attend Phys: Asad Neely MD Discharge: Date of : 76 Report #: [id number] nearby broad ligament. 5. 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 DESCRIPTION OF PROCEDURE: The patient was seen in the preoperative holding area where consent was obtained for surgery. She was then taken to the operating room and administered general anesthesia, prepped and draped in a sterile fashion in the dorsal lithotomy position. Pelvic exam under anesthesia revealed a nonpalpable uterus and nonpalpable adnexa. Speculum was placed in the vagina. The cervix was grasped using a single tooth tenaculum. Uterus sounded to a depth of 8 cm. A Hulka sound tenaculum was then placed inside the uterus and the single tooth tenaculum removed. Speculum was removed. Grant catheter was inserted. Attention was then turned to the abdomen. 0.5% Marcaine was used to infiltrate the incision sites prior to incising them on the abdominal wall. An infraumbilical skin incision was made using a second scalpel overlying the previous transverse infraumbilical surgical scar. Adhesions were encountered when dissecting down to the level of the fascia, which was then grasped in the midline using 2 Mimi clamps, 1 on each side of the midline. The fascia was then incised vertically using a scalpel cutting through old scar tissue until the peritoneum was reached. Stay sutures were placed using 0 Vicryl in the midportion of the incision, 1 on the right side, 1 on the left. The Candelario cannula was then inserted into the peritoneal cavity and ligated to the stay sutures. CO2 gas was insufflated into the peritoneal cavity. Laparoscope was inserted and a panoramic view of the pelvic organs was obtained. A 5-mm laparoscopic port was then placed under direct laparoscopic vision in the right lower quadrant staying 2 fingerbreadths above and medial to the anterior iliac spine. The inferior epigastric blood vessels were identified and the port was placed lateral to them. A second 5-mm port was placed midway between the pubic bone and the umbilicus in the midline under direct laparoscopic vision. The pelvic abdominal cavity was explored. Pelvic washings were taken using normal saline. Findings were as dictated as above. The left paratubal cyst was lifted up from the posterior cul-de-sac where it was sitting as it did appear to be pulling on the ovary. The left paratubal cyst was then aspirated using a needle and deflated with clear straw-colored fluid obtained and sent for pathology. A 5-mm LigaSure unit was then used to excise the left fallopian tube with his paratubal cyst intact down to the level where the Falope ring had tubes and tubal segments. Hemostasis was observed. The right fallopian tube was then removed using the LigaSure unit again down to and including the Falope ring. Again, findings were in the introduction. Both ovaries were found to be normal with a corpus luteal cyst on the right ovary and some tiny inflammatory cyst on the surface of both ovarian capsules and the fallopian tubes. There was no evidence of endometriosis. There was approximately 2.5-cm subserosal fibroid located on the right uterine fundus. No other subserosal fibroids were noted. The 5-mm port was then removed from the right lower quadrant and hemostasis observed. The supraumbilical port was then removed and found to be hemostatic. The CO2 gas was then expressed through the umbilical port opening by removing the Lei cannula. The fascia at the [address] [address] OPERATIVE REPORT Name: NELLY CHINCHILLA Room #: 463-P [facility].#: [id number] Admission: 07/20/18 Attend Phys: Asda Neely MD Discharge: Date of : 76 Report #: [id number] umbilicus was closed using 3 interrupted simple sutures of 0 Vicryl. The skin incisions were then closed using interrupted simple sutures of 3-0 Vicryl. The Grant catheter was removed as well as a single tooth tenaculum. Hemostasis was observed. The patient was then brought out of general anesthesia and taken to recovery room with IV infusing well. By: 1500 1534 Tank Lewis MD /nt
--- NOTE | ~2018-07-20 | PATH ---
[facility] [place] [address] PATHOLOGY RPT PROCEDURE Name: NELLY CHINCHILLA Doe Room #: 463-P DIS IN M.R.#: [id number] Admission: 07/20/18 Date of : 76 Discharge: 07/22/18 Report #: [id number] Path Case #: [id number] [facility] Accession Number: [id number] . 01 Material submitted: . PART A: LEFT FALLOPIAN TUBE AND PARATUBAL CYST PART B: RIGHT FALLOPIAN TUBE . 01 Clinical history: . Endometriosis; dysmenorrhea, progressive; ovarian cyst . 02 Diagnosis: A. Tissue designated as, "left fallopian tube and paratubal cyst", ovarian cystectomy: - Benign serous cystadenoma measuring 3.6 cm in greatest dimension (please see comment). - Negative for borderline proliferation or malignancy. - Adjacent compressed and flattened ovarian parenchyma identified. - Portion of fallopian tube showing congestion as well as reactive changes. . B. Right fallopian tube, salpingectomy: - Congestion as well as reactive changes with adjacent paratubal cysts and endosalpingiosis. . (IUV:mml; 07/23/18) QLM/07/23/2018 . 02 Electronically signed: . Kyung Jeffery MD, Pathologist NPI- [id number] . 01 Gross description: . A. The specimen is received in formalin, labeled "Nelly Chinchilla, left fallopian tube and paratubal cyst". Received is a fimbriated fallopian tube measuring 4.8 cm in length by 0.7 cm in diameter with an attached previously ruptured paratubal cyst measuring 3.6 x 1.6 x 1.0 cm. The serosal surface of the fallopian tube is pink-wiggins and glistening in appearance. Sectioning through the fallopian tube reveals a patent lumen. Sectioning through the attached cystic structure reveals white-ascencio, wrinkled cyst arias with no grossly distinct papillary excrescences. The specimen is submitted representatively in cassettes A1 and A2. . B. The specimen is received in formalin, labeled "Nelly Chinchilla, right fallopian tube". Received is a fimbriated fallopian tube measuring 5.1 cm in length by 0.6 cm in diameter. The serosal surface is pink-ascencio to wiggins, glistening in appearance displaying several [place] [address] PATHOLOGY RPT PROCEDURE Name: NELLY CHINCHILLA Room #: 463-P DIS IN M.R.#: [id number] Admission: 07/20/18 Date of : 76 Discharge: 07/22/18 Report #: [id number] Path Case #: [id number] measuring 0.1 cm. Sectioning reveals a patent lumen, and the fallopian tube appears otherwise grossly unremarkable. The specimen is submitted representatively in cassette B1. (CAA; 07/22/2018) QAC/QAC . 02 Pathologist provided ICD-10: D27.1, N83.8 . 02 CPT . 851936, 822763 Specimen Comment: A courtesy copy of this report has been sent to Specimen Comment: [phone], , . Specimen Comment: Report sent to ,DR MEDINA / DR ANGUIANO Specimen Comment: A duplicate report has been generated due to demographic updates. Performed at: 01 [facility] [address] [facility] [address], [place] [id number] MD Gerson Kilpatrick MD Phone: [phone] Performed at: 02 [facility] [place] [address] [facility], [place], [place] [id number] MD Kyung Jeffery MD Phone: [phone]
--- NOTE | ~2018-07-20 | PATH ---
[facility] [address] [place] [address] PATHOLOGY RPT PROCEDURE Name: NELLY CHINCHILLA Room #: 463-P DIS IN .R.#: [id number] Admission: 07/20/18 Date of : [birth year] Discharge: 07/22/18 Report #: [id number] Path Case #: [id number] Note [facility] Accession Number: [id number] TESTS RESULT FLAG UNITS REF RANGE LAB Clinician Provided Cytology Information No. of containers..01 Other (Miscellaneous) Source: PELVIC WASH DIAGNOSIS: PELVIC WASH NEGATIVE FOR MALIGNANT CELLS. REACTIVE MESOTHELIAL CELLS ARE PRESENT. THIS INTERPRETATION INCLUDES EVALUATION OF A CELL BLOCK. Signed out by: Kyung Jeffery MD, Pathologist NPI- [id number] Performed by: Fei Rider, Golf Professional ([facility]) Gross description: 01 40ML, TIM, CLEAR /LCS FLAG LEGEND: L-Low Normal,H-High Normal,LL-Alert Low,HH-Alert High <-Panic Low,>-Panic High,A-Abnormal,AA-Critical Abnormal Performed at: [address] [place] [address] Gerson Kilpatrick MD, [address] [address] Kyung Jeffery MD, Specimen Comment: A courtesy copy of this report has been sent to Specimen Comment: [phone], . Specimen Comment: Report sent to Performed at: [address], [place], [place] [id number] MD Gerson Kilpatrick MD Phone: [phone]
[2018-07-20 10:40] VITALS: BP 180/124
[2018-07-20 11:03] LABS: ABSOLUTE NEUTROPHILS 4.8 thou/uL (1.4-8.2); BASOPHILS 0.8 % (0.0-2.0); EOSINOPHILS 0.6 % (0.0-3.0); HEMATOCRIT 43.5 % (37.0-47.0); HEMOGLOBIN 14.6 gm/dL (12.0-15.0); LYMPHOCYTES 28.9 % (24.0-44.0); MCH 27.3 pg (26.0-34.0); MCHC 33.7 g/dL (28.0-37.0); MCV 81.1 fL (80.0-100.0); MONOCYTES 4.1 % (1.0-8.0); PLATELET COUNT 290 thou/uL (150-400); POLYS 65.6 % (36.0-66.0); RBC 5.36 mil/uL (4.20-5.00); RDW 16.1 % (10.5-14.5); WBC 7.4 thou/uL (4.0-11.0)
[2018-07-20 11:11] LABS: URINE BILIRUBIN NEGATIVE (Negative); URINE BLOOD NEGATIVE (Negative); URINE CLARITY CLEAR; URINE COLOR YELLOW; URINE GLUCOSE-RANDOM* NEGATIVE (Negative); URINE KETONES 3+ (Negative); URINE LEUKOCYTES-REFLEX NEGATIVE (Negative); URINE NITRITE-REFLEX NEGATIVE (Negative); URINE PROTEIN (DIPSTICK) 1+ (Negative); URINE SPECIFIC GRAVITY 1.025 (1.005-1.035); URINE UROBILINOGEN 0.2 E.U./dl (0.2-1.0)
[2018-07-20 11:11] LABS: CREATININE 0.9 mg/dL (0.6-1.0)
[2018-07-20 11:17] LABS: ALBUMIN 4.1 g/dL (3.4-5.0); TOTAL PROTEIN 8.3 g/dL (6.4-8.2)
[2018-07-20 11:27] LABS: HYALINE CASTS 0-3 Few /LPF (None Seen); SQUAMOUS 4-10 Moderate /LPF (0-3)
[2018-07-20 11:28] LABS: BACTERIA-REFLEX 1-9 Few /HPF (None Seen); CRYSTALS None Seen /LPF (None Seen); URINE RBC None Seen /HPF (0-2); URINE WBC-REFLEX 0-5 Rare /HPF (0-5)
[2018-07-20 15:05] VITALS: BP 155/111
[2018-07-20 15:29] VITALS: BP 178/109
[2018-07-20 15:33] LABS: AMP/METHAMP Negative (Negative); BARBITURATES Negative (Negative); BENZODIAZEPINES Negative (Negative); COCAINE Negative (Negative); METHADONE Negative (Negative); OPIATES POSITIVE (Negative); PCP Negative (Negative)
[2018-07-20 15:39] LABS: MAGNESIUM 2.2 mg/dL (1.8-2.4)
[2018-07-20 16:16] VITALS: BP 191/122
[2018-07-20 19:26] VITALS: BP 187/103
[2018-07-20] MEDS ORDERED: LISINOPRIL5 MG PO (21:53)
[2018-07-21] VITALS (9 sets, daily range): BP systolic 98–139; BP diastolic 67–104
[2018-07-21 03:12] LABS: HEMATOCRIT 35.8 % (37.0-47.0); MCH 27.1 pg (26.0-34.0); MCHC 32.9 g/dL (28.0-37.0); MCV 82.4 fL (80.0-100.0); PLATELET COUNT 248 thou/uL (150-400); RBC 4.35 mil/uL (4.20-5.00); RDW 16.4 % (10.5-14.5); WBC 9.6 thou/uL (4.0-11.0)
[2018-07-21 03:21] LABS: HEMOGLOBIN 11.8 gm/dL (12.0-15.0)
[2018-07-21 03:38] LABS: CALCIUM 8.8 mg/dL (8.5-10.1); CREATININE 0.6 mg/dL (0.6-1.0); MAGNESIUM 1.9 mg/dL (1.8-2.4); POTASSIUM 3.7 mmol/L (3.5-5.1)
[2018-07-21 04:25] LABS: ANISOCYTOSIS 1+; PLATELET ESTIMATE NORMAL
[2018-07-21 14:21] LABS: URINE BLOOD NEGATIVE (Negative); URINE CLARITY CLEAR; URINE COLOR YELLOW; URINE GLUCOSE-RANDOM* NEGATIVE (Negative); URINE KETONES NEGATIVE (Negative); URINE LEUKOCYTES NEGATIVE (Negative); URINE NITRITE NEGATIVE (Negative); URINE PROTEIN (DIPSTICK) 1+ (Negative); URINE SPECIFIC GRAVITY >= 1.030 (1.005-1.035)
[2018-07-21 14:23] LABS: ICTOTEST (BILI CONFIRMATORY) Negative (Negative); URINE BILIRUBIN NEGATIVE (Negative)
[2018-07-21 14:36] LABS: CASTS None Seen /LPF (None Seen); CRYSTALS None Seen /LPF (None Seen); SQUAMOUS 4-10 Moderate /LPF (0-3); URINE RBC None Seen /HPF (0-2); URINE WBC 6-15 Few /HPF (0-5)
[2018-07-21 14:53] LABS: ICTOTEST (BILI CONFIRMATORY) Negative (Negative); URINE BILIRUBIN NEGATIVE (Negative); URINE BLOOD NEGATIVE (Negative); URINE CLARITY CLOUDY; URINE COLOR YELLOW; URINE GLUCOSE-RANDOM* NEGATIVE (Negative); URINE KETONES TRACE (Negative); URINE LEUKOCYTES NEGATIVE (Negative); URINE NITRITE NEGATIVE (Negative); URINE PROTEIN (DIPSTICK) 1+ (Negative); URINE SPECIFIC GRAVITY >= 1.030 (1.005-1.035)
[2018-07-21 15:02] LABS: AMORPHOUS URATES Moderate /LPF (None Seen); CASTS None Seen /LPF (None Seen); SQUAMOUS 0-3 Few /LPF (0-3)
[2018-07-21 15:03] LABS: BACTERIA 1-9 Few /HPF (None Seen); URINE RBC 0-2 Rare /HPF (0-2); URINE WBC 0-5 Rare /HPF (0-5)
[2018-07-21 15:20] LABS: HEMATOCRIT 37.1 % (37.0-47.0); MCHC 32.4 g/dL (28.0-37.0); MCV 83.1 fL (80.0-100.0); RBC 4.46 mil/uL (4.20-5.00); RDW 16.5 % (10.5-14.5); WBC 6.5 thou/uL (4.0-11.0)
[2018-07-21 15:33] LABS: CALCIUM 9.2 mg/dL (8.5-10.1); CREATININE 0.8 mg/dL (0.6-1.0)
[2018-07-22 05:09] LABS: HEMATOCRIT 34.6 % (37.0-47.0); MCHC 31.6 g/dL (28.0-37.0); RDW 16.8 % (10.5-14.5)
[2018-07-22 05:11] LABS: ABSOLUTE NEUTROPHILS 8.6 thou/uL (1.4-8.2); BASOPHILS 0.5 % (0.0-2.0); EOSINOPHILS 1.3 % (0.0-3.0); LYMPHOCYTES 30.8 % (24.0-44.0); MCH 26.4 pg (26.0-34.0); MCV 83.6 fL (80.0-100.0); MONOCYTES 4.6 % (1.0-8.0); PLATELET COUNT 231 thou/uL (150-400); POLYS 62.8 % (36.0-66.0); RBC 4.14 mil/uL (4.20-5.00); WBC 13.7 thou/uL (4.0-11.0)
[2018-07-22 05:21] LABS: CALCIUM 8.7 mg/dL (8.5-10.1); CREATININE 0.7 mg/dL (0.6-1.0); MAGNESIUM 1.8 mg/dL (1.8-2.4); POTASSIUM 4.3 mmol/L (3.5-5.1)
[2018-07-22 05:52] VITALS: BP 140/80
[2018-07-22 07:50] VITALS: BP 155/99
[2018-07-22] MEDS ORDERED: HYDROCODON-ACE1 EAC7 PO (11:56)
[2018-07-22] MEDS ORDERED: SCOPOLAMINE1 EACH TRANSDERM (11:56)
[2018-07-22] MEDS ORDERED: ACETAMINOPHEN325 M1 PO (11:56)
[2018-07-22] MEDS ORDERED: MIRALAX17 GM PO (11:56)
[2018-07-22 14:50] VITALS: BP 146/104
[2018-07-22 14:58] VITALS: BP 155/99
== END 2018-07-22 15:29 | disposition home or self-care (01) | DRG 743 ==
LOC: ER 10:39 → EROBS 13:50 → 4W 13:50 → ENTRNSPT 07-22 15:08 → 4W 07-22 15:29
PROVIDERS: Family Medicine; Nurse Practitioner; Obstetrics & Gynecology; Physician Assistant
PROC: 0UT74ZZ Resection of Bilateral Fallopian Tubes, Percutaneous Endoscopic Approach (ICD-10-PCS; principal; 2018-07-20)
DX: N83.8 Other noninflammatory disorders of ovary, fallopian tube and broad ligament (principal); N83.201 Unspecified ovarian cyst, right side; D25.9 Leiomyoma of uterus, unspecified; I10 Essential (primary) hypertension; G89.4 Chronic pain syndrome; E86.0 Dehydration; I16.0 Hypertensive urgency; E87.6 Hypokalemia; Z98.891 History of uterine scar from previous surgery; Z90.49 Acquired absence of other specified parts of digestive tract; Z79.899 Other long term (current) drug therapy; Z88.0 Allergy status to penicillin; Z80.41 Family history of malignant neoplasm of ovary; Z82.49 Family history of ischemic heart disease and other diseases of the circulatory system; Z81.8 Family history of other mental and behavioral disorders; Z82.3 Family history of stroke
CPT/HCPCS: 10045; 50010; 50101; 50249; 50386; 50400; 50455; 50555; 50558; 50819; 51489; 53307; 53310; 53314; 56462; 56525; 62110; 62900; 70005

== ENCOUNTER → 2018-09-14 | Outpatient (CLI) | payer BC ==
[~2018-09-14] MED LIST changes: +ACETAMINOPHEN325 M1 PO; +HYDROCODON-ACE1 EAC7 PO; +MIRALAX17 GM PO; +SCOPOLAMINE1 EACH TRANSDERM
== END ==
LOC: ULTRA 15:25
DX: N83.01 Follicular cyst of right ovary (principal); D27.9 Benign neoplasm of unspecified ovary

== ENCOUNTER → 2018-10-22 | Outpatient (CLI) | payer BC | LOC: ULTRA 14:51 | DX: D25.9 Leiomyoma of uterus, unspecified (principal); D27.1 Benign neoplasm of left ovary ==

== ENCOUNTER 2018-10-27 14:34 | Emergency (ER) | payer BC ==
[~2018-10-27] VITALS: Ht 160 cm; Wt 71.7 kg
[2018-10-27 15:58] LABS: ABSOLUTE NEUTROPHILS 2.6 thou/uL (1.4-8.2); BASOPHILS 1.2 % (0.0-2.0); EOSINOPHILS 2.6 % (0.0-3.0); HEMATOCRIT 40.6 % (37.0-47.0); HEMOGLOBIN 13.4 gm/dL (12.0-15.0); MCHC 32.9 g/dL (28.0-37.0); MCV 82.1 fL (80.0-100.0); MONOCYTES 6.2 % (1.0-8.0); PLATELET COUNT 346 thou/uL (150-400); RBC 4.95 mil/uL (4.20-5.00); RDW 15.8 % (10.5-14.5); WBC 6.6 thou/uL (4.0-11.0)
[2018-10-27 16:04] LABS: ANION GAP 14 mmol/L (7-16); BUN 13 mg/dL (7-18); CALCIUM 9.9 mg/dL (8.5-10.1); CHLORIDE 101 mmol/L (98-107); CO2 26 mmol/L (21-32); CREATININE 0.8 mg/dL (0.6-1.0); GLUCOSE 80 mg/dL (74-106); POTASSIUM 3.2 mmol/L (3.5-5.1); SODIUM 141 mmol/L (136-145)
[2018-10-27 16:09] LABS: ALBUMIN 4.5 g/dL (3.4-5.0); LIPASE 130 U/L (73-393); SGOT 19 U/L (15-37); SGPT 25 U/L (30-65); TOTAL BILIRUBIN 0.9 mg/dL (<0.1-1.0); TOTAL PROTEIN 8.9 g/dL (6.4-8.2); TROPONIN-I <0.06 ng/mL (<0.06)
[2018-10-27 16:10] LABS: URINE BILIRUBIN NEGATIVE (Negative); URINE BLOOD 1+ (Negative); URINE CLARITY CLEAR; URINE COLOR YELLOW; URINE GLUCOSE-RANDOM* NEGATIVE (Negative); URINE KETONES NEGATIVE (Negative); URINE LEUKOCYTES-REFLEX NEGATIVE (Negative); URINE NITRITE-REFLEX NEGATIVE (Negative); URINE PROTEIN (DIPSTICK) 1+ (Negative); URINE SPECIFIC GRAVITY >= 1.030 (1.005-1.035); URINE UROBILINOGEN 0.2 E.U./dl (0.2-1.0)
[2018-10-27 16:23] LABS: SQUAMOUS 4-10 Moderate /LPF (0-3)
[2018-10-27 16:24] LABS: BACTERIA-REFLEX 1-9 Few /HPF (None Seen); CASTS None Seen /LPF (None Seen); CRYSTALS None Seen /LPF (None Seen); URINE RBC 0-2 Rare /HPF (0-2); URINE WBC-REFLEX None Seen /HPF (0-5)
--- NOTE | 2018-10-27 16:45 | EKG ---
[place] [address] [facility] [place] [address] ELECTROCARDIOGRAM REPORT Name: AMORNELLY Room #: [facility]#: [id number] ������������������ Admission: 10/27/18 ������������������ Attend Phys: Discharge: ������������������ Date of : 76 Report #: [id number] ����������������������������������������������������������������� [id number] THIS REPORT FOR: //name// [facility] ED Test Date: 2018-10-27 Test Time: 15:57:06 Pat Name: NELLY CHINCHILLA Department: Room: Gender: F Transportation Superintendent: BEULAHOlesya : 1980 Requested By: Jimbo Guallpa Order Number: [id number] MD: Krish Moura Measurements Intervals [place] Rate: 79 P: 77 MA: 181 QRS: 4 QRSD: 103 T: 27 QT: 410 QTc: 471 Interpretive Statements Sinus rhythm Left atrial enlargement Nonspecific ST/T abnormalities Compared to ECG 07/15/2018 19:07:21 No significant changes Electronically Signed On 10-27-2018 16:45:21 DAY CARE DIRECTOR by Krish Moura [email or web address] ��������������������������������������������� <ELECTRONICALLY SIGNED> ���������������������������������������� By: Krish Moura MD ��������������������������������������������� 10/27/18 1645 1557 155 Krish Moura MD /RED
[2018-10-27] MEDS ORDERED: ZANTAC 150MG T150 MG PO (17:54)
[2018-10-27] MEDS ORDERED: CARAFATE 1 GM TA1 G1 PO (17:57)
[2018-10-27 18:06] VITALS: BP 159/107
== END 2018-10-27 18:07 | disposition home or self-care (01) ==
LOC: ER 14:34
PROVIDERS: Emergency Medicine
DX: R07.89 Other chest pain (principal); R10.9 Unspecified abdominal pain; I10 Essential (primary) hypertension; N80.9 Endometriosis, unspecified; Z90.49 Acquired absence of other specified parts of digestive tract; Z98.890 Other specified postprocedural states; Z88.0 Allergy status to penicillin

== ENCOUNTER → 2018-11-03 | Outpatient (CLI) | payer BC | LOC: CAT 07:33 | DX: N28.1 Cyst of kidney, acquired (principal); K57.30 Diverticulosis of large intestine without perforation or abscess without bleeding; Z90.49 Acquired absence of other specified parts of digestive tract ==

== ENCOUNTER 2019-03-13 04:51 | Inpatient (IN) | payer BC ==
[~2019-03-13] VITALS: Ht 152.7 cm; Wt 68.9 kg
[2019-03-13] VITALS (7 sets, daily range): BP systolic 111–193; BP diastolic 63–128
[2019-03-13 05:33] LABS: ABSOLUTE NEUTROPHILS 12.9 thou/uL (1.4-8.2); BASOPHILS 0.3 % (0.0-2.0); EOSINOPHILS 0.4 % (0.0-3.0); HEMATOCRIT 42.7 % (37.0-47.0); HEMOGLOBIN 14.1 gm/dL (12.0-15.0); LYMPHOCYTES 7.2 % (24.0-44.0); MCH 26.9 pg (26.0-34.0); MCHC 33.1 g/dL (28.0-37.0); MCV 81.3 fL (80.0-100.0); PLATELET COUNT 345 thou/uL (150-400); POLYS 90.1 % (36.0-66.0); RBC 5.25 mil/uL (4.20-5.00); RDW 16.2 % (10.5-14.5); WBC 14.3 thou/uL (4.0-11.0)
[2019-03-13 05:35] LABS: URINE BILIRUBIN NEGATIVE (Negative); URINE BLOOD 2+ (Negative); URINE CLARITY CLEAR; URINE COLOR YELLOW; URINE GLUCOSE-RANDOM* TRACE (Negative); URINE KETONES NEGATIVE (Negative); URINE LEUKOCYTES-REFLEX NEGATIVE (Negative); URINE NITRITE-REFLEX NEGATIVE (Negative); URINE PROTEIN (DIPSTICK) 3+ (Negative); URINE UROBILINOGEN 0.2 E.U./dl (0.2-1.0)
[2019-03-13 05:43] LABS: CELLULAR CASTS 0-3 Few /LPF (None Seen); HYALINE CASTS 0-3 Few /LPF (None Seen); MUCUS 4-6 Moderate strn/LPF (None Seen); SQUAMOUS 4-10 Moderate /LPF (0-3); WBC CASTS 0-3 Few /LPF (None Seen)
[2019-03-13 05:44] LABS: BACTERIA-REFLEX 1-9 Few /HPF (None Seen); COARSE GRANULAR CASTS 0-3 Few /LPF (None Seen); CRYSTALS None Seen /LPF (None Seen); URINE RBC 3-10 Few /HPF (0-2); URINE WBC-REFLEX 0-5 Rare /HPF (0-5)
[2019-03-13 05:44] LABS: CALCIUM 10.3 mg/dL (8.5-10.1); CREATININE 0.8 mg/dL (0.6-1.0); POTASSIUM 3.6 mmol/L (3.5-5.1)
[2019-03-13 05:50] LABS: ALBUMIN 4.6 g/dL (3.4-5.0); DIRECT BILIRUBIN 0.1 mg/dL (<0.1-0.3); TOTAL BILIRUBIN 0.9 mg/dL (<0.1-1.0); TOTAL PROTEIN 9.5 g/dL (6.4-8.2)
[2019-03-13 10:18] LABS: CHOLESTEROL 256 mg/dL (<200); HDL CHOLESTEROL 78 mg/dL (>40); LDL CHOLESTEROL 167 mg/dL (<100); TC:HDL 3.3 Ratio (Not establshd); TRIGLYCERIDE 55 mg/dL (<150); VLDL 11 mg/dL (<40)
--- NOTE | 2019-03-13 19:25 | NUR ---
ASSUMED CARE AT 1100,
--- NOTE | 2019-03-13 19:54 | EKG ---
[address] [place] [address] ELECTROCARDIOGRAM REPORT Name: NELLY CHINCHILLA Room #: 214-P ADM IN M.R.#: [id number] ������������������ Admission: 03/13/19 ������������������ Attend Phys: Zia Plascencia Discharge: ������������������ Date of : [birth year] Report #: [id number] ����������������������������������������������������������������� [id number] THIS REPORT FOR: //name// [facility] ED Test Date: 2019-03-13 Test Time: 09:26:58 Pat Name: NELLY CHINCHILLA Department: Room: 214 Gender: F Drum Straightener: cassie cm : 1980 Requested By: Brandon Douglas Order Number: [id number] MD: Mark Gonzalez Measurements Intervals [place] Rate: 91 P: 74 ID: 171 QRS: -4 QRSD: 96 T: 48 QT: 394 QTc: 485 Interpretive Statements Sinus rhythm Probable left atrial enlargement Left ventricular hypertrophy Compared to ECG 10/27/2018 15:57:06 Left ventricular hypertrophy now present Electronically Signed On 03-13-2019 19:54:31 CDT by Mark Gonzalez [email or web address] ��������������������������������������������� <ELECTRONICALLY SIGNED> ���������������������������������������� By: Mark Gonzalez MD ��������������������������������������������� 03/13/191953 5 5 Mark Gonzalez MD /EPI
[2019-03-14 04:19] VITALS: BP 113/67
--- NOTE | 2019-03-14 05:06 | NUR ---
RECEIVED PT'S CARE AT 1900; PT. RESTING; AOX4; DURING ASSESSMENT [facility]; 10/03; EDUCATED ABOUT PAIN MANAGEMENT; ST. UNDERSTANDING; SBP LESS THAN 180; SCHEDULED MEDICATION HELD PER ORDER; CHECK CHART; ABLE TO AMBULATE WITHOUT ASSISSTANCE; EDUCATED ABOUT FALL PREVENTION; ST. UNDERSTANDING; THROUGH THE NIGHT SBP LESS THAN 180; SR; NO C/O N/V; NO DIARRHEA; PAIN RE-ASSESSMENT AT 0400; ST. NO PAIN; ABLE TO REST DURING THE NIGHT WITH EYES CLOSE; ASSESSMENT CHARGED; FOLLOWING POC; MONITORING; WILL PASS ON REPORT.
[2019-03-14 05:23] LABS: CALCIUM 9.3 mg/dL (8.5-10.1); POTASSIUM 3.5 mmol/L (3.5-5.1)
[2019-03-14 05:27] LABS: ALBUMIN 3.4 g/dL (3.4-5.0); PHOSPHORUS 2.7 mg/dL (2.5-4.9)
[2019-03-14 06:16] VITALS: BP 135/77
[2019-03-14 08:40] VITALS: BP 134/88
[2019-03-14] MEDS ORDERED: CATAPRES0.1 MG PO (08:49)
--- NOTE | 2019-03-14 12:52 | NUR ---
PT WILL BE DISCHARGED AROUND 5PM THIS AFRTERNOON WHEN HER MOTHER CAN COME PICK HER UP.
[2019-03-14 14:03] VITALS: BP 134/88
--- NOTE | 2019-03-14 14:08 | NUR ---
IV ANF TELE DISCONTINUED. PT UNDERSTANDS ALL FOLOW UP ORDERS. WILL CONTINUE TO ASSESS.
== END 2019-03-14 14:40 | disposition home or self-care (01) | DRG 392 ==
LOC: ER 04:51 → 2N 09:43 → EROBS 09:43 → 2N 10:50
PROVIDERS: Emergency Medicine; ADMIT Hospitalist
DX: K52.9 Noninfective gastroenteritis and colitis, unspecified (principal); I10 Essential (primary) hypertension; I16.0 Hypertensive urgency; Z90.49 Acquired absence of other specified parts of digestive tract; Z98.891 History of uterine scar from previous surgery; Z79.899 Other long term (current) drug therapy; Z88.0 Allergy status to penicillin
CPT/HCPCS: 10081

== ENCOUNTER 2019-07-20 20:00 | Emergency (ER) | payer BC ==
[~2019-07-20] VITALS: Ht 160 cm; Wt 72.6 kg
[~2019-07-20 20:00] MED LIST changes: +CATAPRES0.1 MG PO
[2019-07-20 21:03] LABS: BASOPHILS 1.3 % (0.0-2.0); EOSINOPHILS 4.1 % (0.0-3.0); HEMATOCRIT 34.9 % (37.0-47.0); HEMOGLOBIN 11.3 gm/dL (12.0-15.0); LYMPHOCYTES 51.8 % (24.0-44.0); MCH 26.9 pg (26.0-34.0); MCHC 32.2 g/dL (28.0-37.0); MCV 83.4 fL (80.0-100.0); MONOCYTES 6.4 % (1.0-8.0); PLATELET COUNT 333 thou/uL (150-400); POLYS 36.4 % (36.0-66.0); RBC 4.19 mil/uL (4.20-5.00); RDW 16.7 % (10.5-14.5); WBC 8.2 thou/uL (4.0-11.0)
[2019-07-20 21:19] LABS: ANION GAP 7 mmol/L (7-16); BUN 12 mg/dL (7-18); CALCIUM 9.1 mg/dL (8.5-10.1); CHLORIDE 103 mmol/L (98-107); CO2 28 mmol/L (21-32); CREATININE 0.7 mg/dL (0.6-1.0); GLUCOSE 85 mg/dL (74-106); POTASSIUM 4.9 mmol/L (3.5-5.1); SODIUM 138 mmol/L (136-145)
[2019-07-20 21:28] LABS: LIPASE 187 U/L (73-393); MAGNESIUM 2.1 mg/dL (1.8-2.4); TROPONIN-I <0.06 ng/mL (<0.06)
[2019-07-20] MEDS ORDERED: ONDANSETRON ODT4 MG PO (22:10)
[2019-07-20 22:33] VITALS: BP 159/90
--- NOTE | 2019-07-22 12:54 | EKG ---
[address] [address] ELECTROCARDIOGRAM REPORT Name: NELLY CHINCHILLA Room #: [facility]#: [id number] Admission: 07/20/19 Attend Phys: Discharge: 07/20/19 Date of : [birth year] Report #: [id number] THIS REPORT FOR: //name// [facility] ED Test Date: 2019-07-20 Test Time: 20:46:50 Pat Name: NELLY CHINCHILLA Department: Room: Gender: F Edging Catcher[facility] 1980 Requested By: Jimbo Guallpa Order Number: [id number] MD: Rudy Cohen Measurements Intervals [place] Rate: 64 P: 39 MT: 208 QRS: 14 QRSD: 93 T: 31 QT: 428 QTc: 442 Interpretive Statements Sinus rhythm Borderline prolonged MT interval Compared to ECG 03/13/2019 09:26:58 No significant change was found Electronically Signed On 07-22-2019 12:53:50 WATCH DIAL STONER by Rudy Cohen [email or web address] <ELECTRONICALLY SIGNED> By: Rudy Cohen MD, [facility] 07/22/19 1253 D: 11/2045 45 Rudy Cohen MD, FACC /EPI
== END 2019-07-20 22:34 | disposition home or self-care (01) ==
LOC: ER 20:00
PROVIDERS: Emergency Medicine
DX: R11.2 Nausea with vomiting, unspecified (principal); R10.84 Generalized abdominal pain; I10 Essential (primary) hypertension; N80.9 Endometriosis, unspecified; Z90.49 Acquired absence of other specified parts of digestive tract; Z98.890 Other specified postprocedural states; Z88.0 Allergy status to penicillin

== ENCOUNTER 2019-10-08 15:26 | Emergency (ER) | payer BC ==
[~2019-10-08] VITALS: Ht 160 cm; Wt 72.6 kg
[~2019-10-08 15:26] MED LIST changes: +ONDANSETRON ODT4 MG PO
[2019-10-08 15:27] VITALS: BP 181/109
[2019-10-08] MEDS ORDERED: NORVASC 2.5 MG2.5 M1 PO (15:58)
[2019-10-08] MEDS ORDERED: IBUPROFEN 800800 M1 PO (16:05)
[2019-10-08] MEDS ORDERED: ACYCLOVIR 800800 MG PO (16:05)
[2019-10-12 07:08] LABS: HSV 1 DNA Negative (Negative); HSV 2 DNA Positive (Negative)
[2019-10-12 09:02] LABS: HSV PCR SOURCE BLISTER
== END 2019-10-08 16:17 | disposition home or self-care (01) ==
LOC: ER 15:26
PROVIDERS: Nurse Practitioner Family
DX: A60.00 Herpesviral infection of urogenital system, unspecified (principal); I10 Essential (primary) hypertension; N80.9 Endometriosis, unspecified; Z90.49 Acquired absence of other specified parts of digestive tract; Z98.890 Other specified postprocedural states; Z88.0 Allergy status to penicillin

== ENCOUNTER 2021-01-15 09:59 | Emergency (ER) | payer OTHER ==
[~2021-01-15] VITALS: Ht 160 cm; Wt 74.4 kg
[~2021-01-15 09:59] MED LIST changes: +ACYCLOVIR 800800 MG PO; +IBUPROFEN 800800 M1 PO; +NORVASC 2.5 MG2.5 M1 PO
[2021-01-15] MEDS ORDERED: PROTONIX40 M2 PO (10:06)
[2021-01-15 10:25] LABS: URINE BILIRUBIN NEGATIVE (Negative); URINE BLOOD 3+ (Negative); URINE CLARITY CLEAR; URINE COLOR YELLOW; URINE GLUCOSE-RANDOM* NEGATIVE (Negative); URINE KETONES NEGATIVE (Negative); URINE LEUKOCYTES-REFLEX NEGATIVE (Negative); URINE NITRITE-REFLEX NEGATIVE (Negative); URINE PROTEIN (DIPSTICK) TRACE (Negative); URINE UROBILINOGEN 0.2 E.U./dl (0.2-1.0)
[2021-01-15 10:34] LABS: SQUAMOUS 4-10 Moderate /LPF (0-3)
[2021-01-15 10:35] LABS: BACTERIA-REFLEX 1-9 Few /HPF (None Seen); CASTS None Seen /LPF (None Seen); CRYSTALS None Seen /LPF (None Seen); URINE RBC 1-2 Rare /HPF (NONE SEEN); URINE WBC-REFLEX 0-5 Rare /HPF (0-5)
[2021-01-15 11:30] LABS: EOSINOPHILS 4.8 % (0.0-3.0); HEMATOCRIT 35.6 % (37.0-47.0); HEMOGLOBIN 11.5 gm/dL (12.0-15.0); LYMPHOCYTES 30.2 % (24.0-44.0); MCH 26.9 pg (26.0-34.0); MCHC 32.4 g/dL (28.0-37.0); MCV 83.1 fL (80.0-100.0); MONOCYTES 8.6 % (1.0-8.0); PLATELET COUNT 352 thou/uL (150-400); POLYS 54.4 % (36.0-66.0); RBC 4.28 mil/uL (4.20-5.00); RDW 17.6 % (10.5-14.5); WBC 5.5 thou/uL (4.0-11.0)
[2021-01-15 11:34] LABS: CALCIUM 8.9 mg/dL (8.5-10.1); CREATININE 0.6 mg/dL (0.6-1.0); POTASSIUM 3.4 mmol/L (3.5-5.1)
[2021-01-15 11:40] LABS: ALBUMIN 3.5 g/dL (3.4-5.0); TOTAL BILIRUBIN 0.7 mg/dL (0.2-1.0); TOTAL PROTEIN 7.3 g/dL (6.4-8.2)
[2021-01-15] MEDS ORDERED: PHENERGAN 25 MG25 M1 PO (15:15)
[2021-01-15] MEDS ORDERED: BENTYL 10 MG CA10 MG PO (15:15)
[2021-01-15 15:37] VITALS: BP 148/98
== END 2021-01-15 15:40 | disposition home or self-care (01) ==
LOC: ER 09:59
PROVIDERS: Emergency Medicine; Nurse Practitioner Family
DX: R11.2 Nausea with vomiting, unspecified (principal); R10.30 Lower abdominal pain, unspecified; R19.7 Diarrhea, unspecified; I10 Essential (primary) hypertension; Z90.49 Acquired absence of other specified parts of digestive tract; Z98.890 Other specified postprocedural states; Z87.42 Personal history of other diseases of the female genital tract; Z79.899 Other long term (current) drug therapy; Z88.0 Allergy status to penicillin

== ENCOUNTER 2021-03-23 10:29 | Inpatient (IN) | payer OTHER ==
[~2021-03-23] VITALS: Ht 160 cm; Wt 75.3 kg
[~2021-03-23 10:29] MED LIST changes: +BENTYL 10 MG CA10 M1 PO; +BENTYL 10 MG CA10 MG PO; +OMEPRAZOLE 20 M20 M1 PO
[2021-03-23 10:30] VITALS: BP 245/147
[2021-03-23 11:43] LABS: URINE BILIRUBIN NEGATIVE (Negative); URINE BLOOD TRACE (Negative); URINE COLOR YELLOW; URINE GLUCOSE-RANDOM* 2+ (Negative); URINE KETONES 1+ (Negative); URINE LEUKOCYTES-REFLEX NEGATIVE (Negative); URINE PROTEIN (DIPSTICK) 2+ (Negative); URINE SPECIFIC GRAVITY 1.025 (1.005-1.035); URINE UROBILINOGEN 0.2 E.U./dl (0.2-1.0)
[2021-03-23 11:45] LABS: URINE CLARITY SL HAZY; URINE NITRITE-REFLEX POSITIVE (Negative)
--- NOTE | 2021-03-23 11:54 | NUR ---
PT'S [phone]
[2021-03-23 11:59] LABS: CASTS None Seen /LPF (None Seen); MUCUS >6 Heavy strn/LPF (None Seen); SQUAMOUS 0-3 Few /LPF (0-3)
[2021-03-23 12:00] LABS: AMORPHOUS PHOSPHATES Few /LPF (None Seen); BACTERIA-REFLEX 1-9 Few /HPF (None Seen); URINE RBC 1-2 Rare /HPF (NONE SEEN); URINE WBC-REFLEX 0-5 Rare /HPF (0-5)
[2021-03-23 12:19] LABS: ABSOLUTE NEUTROPHILS 7.1 thou/uL (1.4-8.2); BASOPHILS 0.4 % (0.0-2.0); EOSINOPHILS 0.3 % (0.0-3.0); HEMATOCRIT 43.5 % (37.0-47.0); LYMPHOCYTES 12.6 % (24.0-44.0); MCH 26.3 pg (26.0-34.0); MCHC 32.1 g/dL (28.0-37.0); MCV 81.9 fL (80.0-100.0); MONOCYTES 2.5 % (1.0-8.0); PLATELET COUNT 481 thou/uL (150-400); POLYS 84.2 % (36.0-66.0); RBC 5.31 mil/uL (4.20-5.00); RDW 18.1 % (10.5-14.5); WBC 8.5 thou/uL (4.0-11.0)
[2021-03-23 14:05] LABS: ANISOCYTOSIS 2+
[2021-03-23 14:32] LABS: CALCIUM 9.6 mg/dL (8.5-10.1); CREATININE 0.7 mg/dL (0.6-1.0)
[2021-03-23 14:37] LABS: ALBUMIN 4.2 g/dL (3.4-5.0); TOTAL BILIRUBIN 0.7 mg/dL (0.2-1.0)
[2021-03-23 17:10] LABS: FOLIC ACID 15.7 ng/mL (8.6-58.9)
--- NOTE | 2021-03-24 09:21 | EKG ---
[address] [employer] [place] [address] ELECTROCARDIOGRAM REPORT Name: NELLY CHINCHILLA Room #: 170-14 ADM IN M.R.#: [id number] Admission: 03/23/21 Attend Phys: Yolanda Pabon MD Discharge: Date of : 76 Report #: [id number] [facility] ED Test Date: 2021-03-23 Test Time: 11:15:55 Pat Name: NELLY CHINCHILLA Department: Room: 170 Gender: F Filter Changing Technician: MONCHO : 1980 Requested By: Pop Márquez Order Number: [id number] MD: Ramon Beavers Measurements Intervals [place] Rate: 74 P: -44 MA: 189 QRS: -18 QRSD: 100 T: 32 QT: 452 QTc: 502 Interpretive Statements Sinus rhythm Abnormal R-wave progression, early transition Left ventricular hypertrophy Borderline prolonged QT interval Baseline wander in lead(s) V2 Compared to ECG 07/20/2019 20:46:50 Left ventricular hypertrophy now present Electronically Signed On 03-24-2021 9:21:49 CDT by Ramon Beavers [email or web address] <ELECTRONICALLY SIGNED> By: Ramon Beavers MD, FACC 03/24/21 0921 1115 [id number] Ramon Beavers MD, [facility] /EPI
[2021-03-24 12:28] LABS: ABSOLUTE NEUTROPHILS 12.4 thou/uL (1.4-8.2); BASOPHILS 0.4 % (0.0-2.0); EOSINOPHILS 0.2 % (0.0-3.0); HEMATOCRIT 45.7 % (37.0-47.0); HEMOGLOBIN 14.7 gm/dL (12.0-15.0); LYMPHOCYTES 8.4 % (24.0-44.0); MCH 26.4 pg (26.0-34.0); MCHC 32.3 g/dL (28.0-37.0); MCV 81.9 fL (80.0-100.0); MONOCYTES 5.6 % (1.0-8.0); PLATELET COUNT 440 thou/uL (150-400); POLYS 85.4 % (36.0-66.0); RBC 5.58 mil/uL (4.20-5.00); RDW 18.2 % (10.5-14.5); WBC 14.6 thou/uL (4.0-11.0)
[2021-03-24 12:40] LABS: CALCIUM 10.1 mg/dL (8.5-10.1); CREATININE 0.6 mg/dL (0.6-1.0); MAGNESIUM 2.1 mg/dL (1.8-2.4)
[2021-03-24 12:41] LABS: POTASSIUM 4.2 mmol/L (3.5-5.1)
[2021-03-25 07:05] LABS: CALCIUM 9.2 mg/dL (8.5-10.1); CREATININE 0.9 mg/dL (0.6-1.0); HEMATOCRIT 39.4 % (37.0-47.0); HEMOGLOBIN 12.9 gm/dL (12.0-15.0); MAGNESIUM 1.9 mg/dL (1.8-2.4); MCH 26.7 pg (26.0-34.0); MCHC 32.8 g/dL (28.0-37.0); MCV 81.6 fL (80.0-100.0); RBC 4.82 mil/uL (4.20-5.00); RDW 17.9 % (10.5-14.5); WBC 10.4 thou/uL (4.0-11.0)
[2021-03-25 07:08] LABS: POTASSIUM 2.9 mmol/L (3.5-5.1)
[2021-03-25] MEDS ORDERED: NORVASC 2.5 MG2.5 M1 PO (11:55)
[2021-03-25] MEDS ORDERED: LISINOPRIL10 MG PO (11:56)
--- NOTE | 2021-03-25 12:50 | 2DMMODE ---
[facility] [place] [address] 2 D/M-MODE ECHOCARDIOGRAM Name: NELLY CHINCHILLA Room #: 170-12 ADM IN M.R.#: [id number] Admission: 03/23/21 Attend Phys: Yolanda Pabon MD Discharge: Date of : 76 Report #: [id number] THIS REPORT FOR: cc: LANG VILLANUEVA MD, JESSICA L. MD Park, Jin S. MD ~ APPROVED REPORT Study performed: 03/25/2021 11:50:16 EXAM: Comprehensive 2D, Doppler, and color-flow Echocardiogram Patient Location: ER Room #: 12 Status: routine BSA: 1.79 HR: 67 bpm BP: 128/80 mmHg Rhythm: NSR Other Information Study Quality: Good Indications Arrhythmia Hypertension/HDD SVT 2D Dimensions IVSd: 9.92 (7-11mm) LVOT Diam: 20.43 (18-24mm) LVDd: 48.94 mm PWd: 10.81 (7-11mm) LVDs: 24.27 (25-40mm) Aortic Root: 32.74 mm IVC: 17.00 mm Volumes Left Atrial Volume (Systole) Single Plane 4CH: 55.01 mL Single Plane 2CH: 61.28 mL LA ESV Index: 37.00 mL/m2 Aortic Valve AoV Peak Casimiro.: 1.23 m/s AO Peak Gr.: 6.07 mmHg LVOT Max P.56 mmHg LVOT Max V: 1.18 m/s BETHANY Vmax: 3.13 cm2 [facility] [address] [place] [address] 2 D/M-MODE ECHOCARDIOGRAM Name: NELLY CHINCHILLA Room #: 170-12 ADM IN M.R.#: [id number] Admission: 03/23/21 Attend Phys: Yolanda Pabon MD Discharge: Date of : 76 Report #: [id number] Mitral Valve E/A Ratio: 0.9 MV Decel. Time: 270.13 ms MV E Max Casimiro.: 0.60 m/s MV A Casimiro.: 0.66 m/s MV PHT: 78.34 ms IVRT: 92.27 ms Pulmonary Valve PV Peak Casimiro.: 0.90 m/s PV Peak Gr.: 3.27 mmHg Pulmonary Vein P Vein S: 0.59 m/s P Vein A: 0.25 m/s P Vein D: 0.34 m/s P Vein A Dur.: 115.3 msec P Vein S/D Ratio: 1.74 Left Ventricle The left ventricle is normal size. There is normal LV segmental wall motion. There is normal left ventricular wall thickness. Left ventricular systolic function is normal. The left ventricular ejection fraction is within the normal range. LVEF is 55-60%. Grade I - abnormal relaxation pattern. Right Ventricle The right ventricle is normal size. The right ventricular systolic function is normal. Atria The left atrium size is normal. The right atrium size is normal. Aortic Valve The aortic valve is normal in structure. No aortic regurgitation is present. There is no aortic valvular stenosis. Mitral Valve The mitral valve is normal in structure. There is no mitral valve regurgitation noted. No evidence of mitral valve stenosis. Tricuspid Valve The tricuspid valve is normal in structure. There is no tricuspid valve regurgitation noted. Pulmonic Valve The pulmonary valve is normal in structure. There is no pulmonic [facility] [address] [place] [address] 2 D/M-MODE ECHOCARDIOGRAM Name: NELLY CHINCHILLA Doe Room #: 170-12 ADM IN .R.#: [id number] Admission: 03/23/21 Attend Phys: Yolanda Pabon MD Discharge: Date of : 76 Report #: [id number] valvular regurgitation. Great Vessels The aortic root is normal in size. IVC is normal in size and collapses >50% with inspiration. Pericardium There is no pericardial effusion. <Conclusion> The left ventricle is normal size. There is normal left ventricular wall thickness. Left ventricular systolic function is normal. Grade I - abnormal relaxation pattern. The right ventricle is normal size. The left atrium size is normal. The aortic valve is normal in structure. There is no mitral valve regurgitation noted. <ELECTRONICALLY SIGNED> By: Bertram Terry MD 03/25/21 1256 1250 1250 Bertram Terry MD /DANIEL
[2021-03-25 13:32] VITALS: BP 129/81
[2021-03-25 14:22] VITALS: BP 140/86
== END 2021-03-25 14:00 | disposition home or self-care (01) | DRG 392 ==
LOC: ER 10:29 → EROBS 15:21
PROVIDERS: Emergency Medicine; Nurse Practitioner; ADMIT Internal Medicine; ATTEND Internal Medicine
DX: K52.9 Noninfective gastroenteritis and colitis, unspecified (principal); N12 Tubulo-interstitial nephritis, not specified as acute or chronic; I10 Essential (primary) hypertension; I16.0 Hypertensive urgency; E87.6 Hypokalemia; K44.9 Diaphragmatic hernia without obstruction or gangrene; N83.201 Unspecified ovarian cyst, right side; Z90.49 Acquired absence of other specified parts of digestive tract; Z88.0 Allergy status to penicillin; Z79.899 Other long term (current) drug therapy; Z20.822 Contact with and (suspected) exposure to COVID-19